=== PATIENT | male | born 1950 | race Caucasian/White ===

== ENCOUNTER 2020-01-19 01:49 | Inpatient (IN) ==
[2020-01-19] MEDS ORDERED: THORAZINE INJ 25 MG AMP ONE ×2 (02:03→07:24)
[2020-01-19] MEDS ORDERED: THORAZINE INJ 25 MG AMP IM ONE ×2 (02:05→07:13)
--- NOTE | 2020-01-19 02:05 | DR.GENAD ---
HPI Time Seen Time Seen by Provider: 01/19/20 02:13 PCP Primary Care Physician: RED Complaint/Symptoms Chief Complaint Doctors Comments: Patient on meds for COVID19 (Plaquenil, Steroids, vitamins). Chief complaint tonight is his Hiccups. Chief Complaint:: PT WAS TESTED FOR COVID 19 LAST SATURDAY FOR FEVER AND COUGH. HAS HAD HICCUPS EVER SINCE. COVID-19 Coronavirus risk:travel/contact w/high risk person: Yes Has patient experienced Coronavirus symptoms: Yes Coronavirus symptoms experienced: Coughing Nurses notes reviewed Nurses Notes Review: Yes Source History Provided: Patient Mode of Arrival Mode of Arrival: Ambulatory Timing Onset of Chief Complaint: 01/12/20 Came on: Gradually Duration Duration: Constant Duration: Days Severity Severity: Moderate Modifying Factors Worsens:: indigestion Associated Signs and Symptoms Associated Signs and Symptoms: cough PMH PMH Past Medical History: Yes Past Medical History: Dyslipidemia, GERD and Hypertension Past Surgical History: No Surgical History: No History Family History History of Family Medical Conditions: Yes Family Medical History: Hypertension Social History Does patient currently use any type of tobacco product: No Have you used tobacco products in the last 12 months: No Type of Tobacco Use: None Does any household member use tobacco: No Do you use any recreational Drugs:: No Lives With: Spouse Lives Where: Home Travel Risk Coronavirus risk:travel/contact w/high risk person: Yes Has patient experienced Coronavirus symptoms: Yes Coronavirus symptoms experienced: Coughing Infectious screening In the last 2 months have you had wt loss of >10#?: NO Have you had fever, night sweats or hemotysis?: No Have you traveled outside the country in the last 6 months?: No Isolation: Droplet ROS Review of Systems Constitutional: Fever Eyes: No Symptoms Reported ENTM: No Symptoms Reported Respiratoy: Non-Productive Cough Cardiovascular: No Symptoms Reported Gastrointestinal/Abdominal: Other (indigestion) Genitourinary: No Symptoms Reported Neurological: No Symptoms Reported Musculoskeletal: No Symptoms Reported Integumentary: No Symptoms Reported Hematologic/Lymphatic: No Symptoms Reported Endocrine: No Symptoms Reported Psychiatric: No Symptoms Reported All Other Systems: Reviewed and Negative PE Vital Signs Vitals: Temperature 98.1 F Pulse Rate [Left Brachial] 94 Pulse Rate 88 Respiratory Rate 20 Blood Pressure [Left Arm] 151/81 Blood Pressure 146/90 O2 Sat by Pulse Oximetry 97 General Limitations: No Limitations General Appearance: Alert and In No Apparent Distress Head Head Exam: Normal Inspection, Atraumatic and Normocephalic Eyes Eye exam: Normal Appearance and EOMI ENT ENT Exam: Normal Exam External Ear Exam: Normal External Inspection Nose Exam: Normal Nose Exam Mouth Exam: Normal Inspection Throat Exam: Normal Inspection Neck Neck Exam: Normal Inspection, Full ROM and Trachea Midline Chest Chest Inspection: Normal Inspection Respiratory Respiratory Exam: Normal Lung Sounds Bilat Respiratory Exam: Bilateral: Clear to Auscultation Cardiovascular Cardiovascular Exam: Regular Rate Abdominal Exam Abdominal Exam: Normal Inspection Extremities Extremities Exam: Normal Inspection and Full ROM Back Back Exam: Normal Inspection and Full ROM Neurologic Neurological Exam: Alert, Oriented X3, CN II-XII Intact and Normal Gait Psychiatric Psychiatric Exam: Flat Affect Skin Skin Exam: Normal Color COURSE Treatment Treatment: 0245: Hiccups resolved, ROR XRAY XRAY Interpreted by: Self X-ray Results: chest : no acute disease EKG Rhythm: VF Opioid Opioid Risk Tool Age (Maikol box if 16-45): No History of Preadolescent Sexual Abuse: No Total: 0 Total Score Risk Category: Low Risk Copyright: Rilye MCMAHON predicting aberrant behaviors Diagnosis Discharge Problem: Hiccups Instructions Instructions: Hiccups Forms: Excuse From Work Precautions for COVID19 Patient Portal Social Distancing
[2020-01-19] MEDS ORDERED: LEVSIN/MAALOX/LIDOC VISC PO ONE ×2 (02:06→07:18)
[2020-01-19] MEDS ORDERED: LEVSIN/MAALOX/LIDOC VISC ONE ×2 (02:08→07:24)
--- NOTE | 2020-01-19 02:57 | DR.GENAD ---
HPI Time Seen Time Seen by Provider: 01/19/20 02:13 PCP Primary Care Physician: RED Complaint/Symptoms Chief Complaint:: PT WAS TESTED FOR COVID 19 LAST SATURDAY FOR FEVER AND COUGH. HAS HAD HICCUPS EVER SINCE. COVID-19 Coronavirus risk:travel/contact w/high risk person: Yes Has patient experienced Coronavirus symptoms: Yes Coronavirus symptoms experienced: Coughing Nurses notes reviewed Nurses Notes Review: Yes Source History Provided: Patient Mode of Arrival Mode of Arrival: Ambulatory Timing Onset of Chief Complaint: 01/12/20 Came on: Gradually Duration Duration: Constant Duration: Days Severity Severity: Moderate Modifying Factors Worsens:: indigestion Associated Signs and Symptoms Associated Signs and Symptoms: cough PMH PMH Past Medical History: Yes Past Medical History: Dyslipidemia, GERD and Hypertension Past Surgical History: No Surgical History: No History Family History History of Family Medical Conditions: Yes Family Medical History: Hypertension Social History Does patient currently use any type of tobacco product: No Have you used tobacco products in the last 12 months: No Type of Tobacco Use: None Does any household member use tobacco: No Do you use any recreational Drugs:: No Lives With: Spouse Lives Where: Home Travel Risk Coronavirus risk:travel/contact w/high risk person: Yes Has patient experienced Coronavirus symptoms: Yes Coronavirus symptoms experienced: Coughing Infectious screening In the last 2 months have you had wt loss of >10#?: NO Have you had fever, night sweats or hemotysis?: No Have you traveled outside the country in the last 6 months?: No Isolation: Droplet PE Vital Signs Vitals: Temperature 98.1 F Pulse Rate [Left Brachial] 94 Pulse Rate 88 Respiratory Rate 20 Blood Pressure [Left Arm] 151/81 Blood Pressure 146/90 O2 Sat by Pulse Oximetry 97 Opioid Opioid Risk Tool Age (Maikol box if 16-45): No History of Preadolescent Sexual Abuse: No Total: 0 Total Score Risk Category: Low Risk Copyright: Riley MCMAHON predicting aberrant behaviors Diagnosis Discharge Problem: Hiccups Instructions Instructions: Hiccups Forms: Excuse From Work Precautions for COVID19 Patient Portal Social Distancing
--- NOTE | 2020-01-19 03:48 | RAD ---
HISTORYTESTED FOR COVID 19 AND WAS POSITIVE LAST RISHABH FOR FEVER AND COUGH. HAS HAD HICCUPS EVER SINCESTUDYCHEST, 1 VIEWCOMPARISONNoneFINDINGSThe trachea is midline. The cardiac silhouette is unremarkable . The lungs are clear without focal infiltrate or effusion. Pulmonary vasculature within normal limits. No pneumothorax. The bony thorax is unremarkable.IMPRESSIONNo acute cardiopulmonary disease.Electronically signed by: Ryan Sim (Jan 19, 2020 03:46:44)
[2020-01-19] MEDS ORDERED: XOPENEX 1.25 MG/3 ML NEBULE NEB ONE ×2 (07:12→07:37)
--- NOTE | 2020-01-19 07:12 | DR.GENAD ---
HPI Time Seen Time Seen by Provider: 01/19/20 02:13 PCP Primary Care Physician: RED Complaint/Symptoms Chief Complaint Doctors Comments: Patient returned to ER due to Hiccups returning and dyspnea. Chief Complaint:: PT WAS TESTED FOR COVID 19 LAST SATURDAY FOR FEVER AND COUGH. HAS HAD HICCUPS EVER SINCE. COVID-19 Coronavirus risk:travel/contact w/high risk person: Yes Has patient experienced Coronavirus symptoms: Yes Coronavirus symptoms experienced: Fever, Coughing and Shortness of Breath Nurses notes reviewed Nurses Notes Review: Yes Source History Provided: Patient Mode of Arrival Mode of Arrival: Ambulatory Timing Onset of Chief Complaint: 01/12/20 Came on: Gradually Duration Duration: Constant Duration: Days Severity Severity: Moderate Modifying Factors Worsens:: indigestion Associated Signs and Symptoms Associated Signs and Symptoms: cough PMH PMH Past Medical History: Yes Past Medical History: Dyslipidemia, GERD and Hypertension Past Surgical History: No Surgical History: No History Family History History of Family Medical Conditions: Yes Family Medical History: Hypertension Social History Does patient currently use any type of tobacco product: No Have you used tobacco products in the last 12 months: No Type of Tobacco Use: None Does any household member use tobacco: No Do you use any recreational Drugs:: No Lives With: Spouse Lives Where: Home Travel Risk Coronavirus risk:travel/contact w/high risk person: Yes Has patient experienced Coronavirus symptoms: Yes Coronavirus symptoms experienced: Fever, Coughing and Shortness of Breath Infectious screening In the last 2 months have you had wt loss of >10#?: NO Have you had fever, night sweats or hemotysis?: No Have you traveled outside the country in the last 6 months?: No Isolation: Droplet ROS Review of Systems Constitutional: No Symptoms Reported Eyes: No Symptoms Reported ENTM: No Symptoms Reported Respiratoy: Short of Breath Cardiovascular: No Symptoms Reported Gastrointestinal/Abdominal: No Symptoms Reported Genitourinary: No Symptoms Reported Neurological: Other (hiccups) Musculoskeletal: No Symptoms Reported Integumentary: No Symptoms Reported Hematologic/Lymphatic: No Symptoms Reported Psychiatric: No Symptoms Reported All Other Systems: Reviewed and Negative PE Vital Signs Vitals: Temperature 99.8 F Pulse Rate [Left Brachial] 109 Pulse Rate 100 Respiratory Rate 20 Blood Pressure [Left Arm] 143/82 Blood Pressure 168/89 O2 Sat by Pulse Oximetry 85 General Limitations: No Limitations General Appearance: Alert and In No Apparent Distress Head Head Exam: Normal Inspection, Atraumatic and Normocephalic Eyes Eye exam: Normal Appearance and EOMI ENT ENT Exam: Normal Exam and Normal Oropharynx External Ear Exam: Normal External Inspection Nose Exam: Normal Nose Exam Mouth Exam: Normal Inspection Throat Exam: Normal Inspection Neck Neck Exam: Normal Inspection, Full ROM and Trachea Midline Chest Chest Inspection: Normal Inspection Respiratory Respiratory Exam: Normal Lung Sounds Bilat Respiratory Exam: Bilateral: Clear to Auscultation Cardiovascular Cardiovascular Exam: Tachycardia Abdominal Exam Abdominal Exam: Normal Inspection and Soft Extremities Extremities Exam: Normal Inspection and Full ROM Back Back Exam: Normal Inspection and Full ROM Neurologic Neurological Exam: Alert, Oriented X3 and CN II-XII Intact Psychiatric Psychiatric Exam: Flat Affect Skin Skin Exam: Normal Color COURSE Treatment Treatment: 0755: Hiccups stopped again, feels good with no Dyspnea, will Rx albuterol for home nebulizer 0810: case turned over to DR. BLANC Opioid Opioid Risk Tool Age (Maikol box if 16-45): No History of Preadolescent Sexual Abuse: No Total: 0 Total Score Risk Category: Low Risk Copyright: Riley MCMAHON predicting aberrant behaviors Diagnosis Discharge Problem: Hiccups, Acute dyspnea Instructions Instructions: Hiccups Forms: Excuse From Work Precautions for COVID19 Patient Portal Social Distancing
[2020-01-19] MEDS ORDERED: DUONEB 0.5 MG/3 MG (3 mL) NEB ONE ×2 (07:58→08:05)
[2020-01-19 08:19] LABS: ABG ALLEN TEST POS; ABG BASE EXCESS 4.3 mmol/L (-2.0-2.0); ABG HCO3 26.5 mmol/L (22-26)
[2020-01-19 08:22] LABS: BASOPHILS % (AUTO) 0.2 % (0.2-1.0); EOSINOPHILS % (AUTO) 0.1 % (0.9-2.9); HEMATOCRIT 44.5 % (42.0-54.0); HEMOGLOBIN 15.4 g/dL (13.5-18.0); LYMPHOCYTES # (AUTO) 1.4 X10^3/uL (1.3-2.9); LYMPHOCYTES % (AUTO) 19.4 % (21.0-51.0); MEAN CORPUSCULAR HEMOGLOBIN 32.7 pg (27.0-34.0); MEAN CORPUSCULAR HGB CONC 34.6 g/dL (33.0-35.0); MEAN CORPUSCULAR VOLUME 94.6 fL (80.0-100.0); MEAN PLATELET VOLUME 7.2 fL (7.4-11.0); MONOCYTES # (AUTO) 0.5 x10^3/uL (0.3-0.8); MONOCYTES % (AUTO) 7.3 % (0.0-13.0); NEUTROPHILS # (AUTO) 5.2 x10^3/uL (2.2-4.8); PLATELET COUNT 160 X10^3/uL (150.0-450.0); RED CELL DISTRIBUTION WIDTH 13.6 % (11.6-16.5); WHITE BLOOD COUNT 7.1 X10^3/uL (3.6-10.0)
[2020-01-19 08:30] LABS: ALANINE AMINOTRANSFERASE 59 Units/L (12-78); ALBUMIN 3.4 g/dL (3.4-5.0); ALKALINE PHOSPHATASE 22 Units/L (46-116); ASPARTATE AMINO TRANSFERASE 37 Units/L (15-37); BLOOD UREA NITROGEN 26 mg/dL (7-18); CALCIUM 8.5 mg/dL (8.5-10.1); CARBON DIOXIDE 28.6 mmol/L (21-32); CHLORIDE 99 mmol/L (98-107); SODIUM 136 mmol/L (136-145); TOTAL PROTEIN 7.3 g/dL (6.4-8.2); eGFR NON BLACK RACES 40 (>60)
[2020-01-19 09:10] LABS: LACTATE DEHYDROGENASE 243 Units/L (85-227)
[2020-01-19 09:31] LABS: LACTIC ACID 1.6 mmol/L (0.4-2.0)
--- NOTE | 2020-01-19 10:24 | DR.GENAD ---
HPI Time Seen Time Seen by Provider: 01/19/20 02:13 PCP Primary Care Physician: RED HPI Comment HPI Comment: PATIENT IS 69YR OLD MALE IN ER WITH COUGH, HICCUPS. WEAKNESS AND INCREASING SOB FOR SEVERAL DAYS. PATIENT IS COVID POSITIVE. HAVING GENERALIZED WEAKNESS.HAVING HICCUPS ON AND OFF FOR PAST 2 WEEKS. Complaint/Symptoms Chief Complaint Doctors Comments: HICCUPS, GENERALIZED WEAKNESS, SOB AND COUGH SEVERAL DAYS. COVID TESTED POSITIVE [address] LOREN SORENSEN OFFICE IN [place]. Chief Complaint:: PT WAS TESTED FOR COVID 19 LAST SATURDAY FOR FEVER AND COUGH. H HAD HICCUPS EVER SINCE. COVID-19 Coronavirus risk:travel/contact w/high risk person: Yes Has patient experienced Coronavirus symptoms: Yes Coronavirus symptoms experienced: Fever, Coughing and Shortness of Breath Nurses notes reviewed Nurses Notes Review: Yes Source History Provided: Patient Mode of Arrival Mode of Arrival: Ambulatory Timing Onset of Chief Complaint: 01/12/20 Came on: Gradually Duration Duration: Constant Duration: Days Severity Severity: Moderate Modifying Factors Worsens:: indigestion Associated Signs and Symptoms Associated Signs and Symptoms: cough PMH PMH Past Medical History: Yes Past Medical History: Dyslipidemia, GERD and Hypertension Past Surgical History: No Surgical History: No History Family History History of Family Medical Conditions: Yes Family Medical History: Hypertension Social History Does patient currently use any type of tobacco product: No Have you used tobacco products in the last 12 months: No Type of Tobacco Use: None Does any household member use tobacco: No Do you use any recreational Drugs:: No Lives With: Spouse Lives Where: Home Travel Risk Coronavirus risk:travel/contact w/high risk person: Yes Has patient experienced Coronavirus symptoms: Yes Coronavirus symptoms experienced: Fever, Coughing and Shortness of Breath Infectious screening In the last 2 months have you had wt loss of >10#?: NO Have you had fever, night sweats or hemotysis?: No Have you traveled outside the country in the last 6 months?: No Isolation: Droplet ROS Review of Systems Constitutional: See HPI, Fever, Weakness, Fatigue and Other (HICCUPS.) Eyes: No Symptoms Reported and See HPI; negative Blurred Vision and Diplopia ENTM: See HPI and Nose Congestion; negative Ear Pain, Nose Discharge and Throat Pain Respiratoy: See HPI, Non-Productive Cough, Short of Breath and Other (HICCUPS) Cardiovascular: No Symptoms Reported and See HPI; negative Chest Pain Gastrointestinal/Abdominal: No Symptoms Reported and See HPI; negative Abdominal Pain, Diarrhea and Vomiting Genitourinary: No Symptoms Reported and See HPI; negative Dysuria, Frequency and Hematuria Neurological: See HPI, Weakness and Dizziness Musculoskeletal: See HPI and Muscle Pain Integumentary: No Symptoms Reported and See HPI Hematologic/Lymphatic: See HPI and Easy Bruising Endocrine: No Symptoms Reported and See HPI; negative Increased Thirst and Increased Urine Psychiatric: No Symptoms Reported and See HPI All Other Systems: Reviewed and Negative PE Vital Signs Vitals: Temperature 99.8 F Pulse Rate [Left Brachial] 109 Pulse Rate 75 Respiratory Rate 20 Blood Pressure [Left Arm] 143/82 Blood Pressure 105/65 O2 Sat by Pulse Oximetry 97 General Limitations: No Limitations General Appearance: Alert and In Distress Head Head Exam: Normal Inspection and Atraumatic Eyes Eye exam: Normal Appearance and PERRL; negative Scleral Icterus and Conjunctival Injection ENT ENT Exam: Normal Exam, Normal Oropharynx, Normal External Ear Exam and TM's Normal Bilaterally External Ear Exam: negative Mastoid Tenderness TM/Canal Exam: Bilateral: Normal Nose Exam: negative Sinus Tenderness Mouth Exam: Normal Inspection; negative Lip Swelling and Tongue Swelling Throat Exam: Normal Inspection; negative Tonsillar Erythema, Tonsillomegaly and Tonsillar Exudate Neck Neck Exam: Normal Inspection and Trachea Midline Chest Chest Inspection: Normal Inspection and Symmetric Chest Wall Rise; negative Tenderness Respiratory Respiratory Exam: Respiratory Distress; negative Accessory Muscle Use and Chest Wall Tenderness Respiratory Exam: Bilateral: Rhonchi and Lower: Rhonchi Cardiovascular Cardiovascular Exam: Regular Rate, Normal Rhythm and Normal Heart Sounds; negative Systolic Murmur and Diastolic Murmur Abdominal Exam Abdominal Exam: Normal Inspection, Normal Bowel Sounds and Soft; negative Tenderness Back Back Exam: Normal Inspection; negative (R) CVA Tenderness and (L) CVA Tenderness Neurologic Neurological Exam: Alert and Oriented X3; negative Motor Sensory Deficit Psychiatric Psychiatric Exam: Normal Affect and Normal Mood Skin Skin Exam: Dry MDM Differential Diagnosis Differential Diagnosis: PNEUMONIA, HICCUPS, CHF, UTI, COURSE Treatment Treatment: SEE ORDERS. PATIENT TURN OVER TO MY SERVICE BY DR. ARROYO. NS 1L IV BOLUS. PEPCID 20MG IVPB. ROCEPHIN 1GM IVPB IN ER. Reevaluation 1st: Improved Consultation Consultation Comments: DISCUSSED PATIENT WITH DR. RIOS. HE WILL ADMIT PATIENT. Education/Counseling Education/Counseling: Patient Educated On: Diagnosis ROR Labs Reviewed Laboratory Results Reviewed?: Yes Result Diagrams: 01/23/20 04:25 01/23/20 04:25 Laboratory: 01/19/20 08:56 Blood Blood Culture - Final 01/19/20 08:45 Blood Blood Culture - Final WBC 7.1 X10^3/uL (3.6-10.0) 01/19/20 08:14 RBC 4.70 X10^6/uL (4.7-6.0) 01/19/20 08:14 Hgb 15.4 g/dL (13.5-18.0) 01/19/20 08:14 Hct 44.5 % (42.0-54.0) 01/19/20 08:14 MCV 94.6 fL (80.0-100.0) 01/19/20 08:14 MCH 32.7 pg (27.0-34.0) 01/19/20 08:14 MCHC 34.6 g/dL (33.0-35.0) 01/19/20 08:14 RDW 13.6 % (11.6-16.5) 01/19/20 08:14 Plt Count 160 X10^3/uL (150.0-450.0) 01/19/20 08:14 MPV 7.2 fL (7.4-11.0) L 01/19/20 08:14 Neut % (Auto) 73.0 % (42.0-75.0) 01/19/20 08:14 Lymph % (Auto) 19.4 % (21.0-51.0) L 01/19/20 08:14 [place] % (Auto) 7.3 % (0.0-13.0) 01/19/20 08:14 Eos % (Auto) 0.1 % (0.9-2.9) L 01/19/20 08:14 Baso % (Auto) 0.2 % (0.2-1.0) 01/19/20 08:14 Neut # (Auto) 5.2 x10^3/uL (2.2-4.8) H 01/19/20 08:14 Lymph # (Auto) 1.4 X10^3/uL (1.3-2.9) 01/19/20 08:14 [place] # (Auto) 0.5 x10^3/uL (0.3-0.8) 01/19/20 08:14 Eos # (Auto) 0.0 x10^3/uL (0.0-0.2) 01/19/20 08:14 Baso # (Auto) 0.0 X10^3/uL (0.0-0.1) 01/19/20 08:14 Absolute Nucleated RBC 0.0 /100WBC 01/19/20 08:14 D-Dimer < 100 ng/mL (0-400) 01/19/20 08:45 Sample Site Lr 01/19/20 08:15 ABG pH 7.540 (7.35-7.45) H 01/19/20 08:15 ABG pCO2 31.0 mmHg (35.0-45.0) L 01/19/20 08:15 ABG pO2 57.0 mmHg (80.0-100.0) L 01/19/20 08:15 ABG HCO3 26.5 mmol/L (22-26) H 01/19/20 08:15 ABG O2 Saturation 93.0 % (90-100) 01/19/20 08:15 ABG Base Excess 4.3 mmol/L (-2.0-2.0) H 01/19/20 08:15 Fab Test Pos 01/19/20 08:15 A-a Gradient 54.0 mmHg 01/19/20 08:15 FiO2 21.0 01/19/20 08:15 Blood Gas Comments Sandee well cb 01/19/20 08:15 Sodium 136 mmol/L (136-145) 01/19/20 08:14 Corrected Sodium TNP 01/19/20 08:14 Potassium 4.0 mmol/L (3.5-5.1) 01/19/20 08:14 Chloride 99 mmol/L (98-107) 01/19/20 08:14 Carbon Dioxide 28.6 mmol/L (21-32) 01/19/20 08:14 BUN 26 mg/dL (7-18) H 01/19/20 08:14 Creatinine 1.80 mg/dL (0.70-1.30) H 01/19/20 08:14 Est GFR (MDRD) Af Amer 48 (>60) L 01/19/20 08:14 Est GFR (MDRD) Non-Af 40 (>60) L 01/19/20 08:14 Glucose 101 mg/dL (65-99) H 01/19/20 08:14 Lactic Acid 1.6 mmol/L (0.4-2.0) 01/19/20 08:45 Calcium 8.5 mg/dL (8.5-10.1) 01/19/20 08:14 Corrected Calcium TNP 01/19/20 08:14 Ferritin 195 ng/mL (26-388) 01/19/20 08:45 Total Bilirubin 0.50 mg/dL (0.2-1.0) 01/19/20 08:14 AST 37 Units/L (15-37) 01/19/20 08:14 ALT 59 Units/L (12-78) 01/19/20 08:14 Alkaline Phosphatase 22 Units/L (46-116) L 01/19/20 08:14 Lactate Dehydrogenase 243 Units/L (85-227) H 01/19/20 08:45 C-Reactive Protein 19.40 mg/L (0-3.0) H 01/19/20 08:14 Total Protein 7.3 g/dL (6.4-8.2) 01/19/20 08:14 Albumin 3.4 g/dL (3.4-5.0) 01/19/20 08:14 Globulin 3.9 g/dL (2.5-4.5) 01/19/20 08:14 Albumin/Globulin Ratio 0.9 Ratio (1.1-2.1) L 01/19/20 08:14 Opioid Opioid Risk Tool Age (Maikol box if 16-45): No History of Preadolescent Sexual Abuse: No Total: 0 Total Score Risk Category: Low Risk Copyright: [facility] predicting aberrant behaviors Diagnosis Discharge Problem: Hiccups, Acute dyspnea, Generalized weakness, Acute dehydration, COVID-19 virus infection Instructions Instructions: Shortness of Breath, Adult, [id number] Viral Respiratory Infection, Gjze-Nd-Cswj Dehydration, Adult, [id number] Rehydration, Adult Hiccups Hypertension, Kgnn-[id number] Community-Acquired Pneumonia, Adult, Lpks-as-[id number] Forms: Precautions for COVID19 Patient Portal Social Distancing
[2020-01-19] MEDS ORDERED: NS 1000 ML 1,000 ML IV ONE (10:35)
[2020-01-19] MEDS ORDERED: PEPCID 20 MG IV PREMIX* 20 MG/50 ML BAG IV ONE ×2 (10:35→10:38)
[2020-01-19] MEDS ORDERED: NS 1000 ML 1,000 ML ONE ×2 (10:38→12:15)
[2020-01-19] MEDS: NS 1000 ML 1,000 ML IV SCH ×2 (12:54→18:45)
[2020-01-19 14:36] LABS: CKMB % 0.5 % (<4); CREATINE KINASE 371 Units/L (39-308); TROPONIN I < 0.02 ng/mL (0-1.5)
[2020-01-19] MEDS ORDERED: ROCEPHIN VIAL 1 GRAM 1 G, ROCEPHIN VIAL 500 MG 500 MG in NS 50 ML IV 50 ML IV SCH (14:55)
[2020-01-19 15:51] LABS: BILIRUBIN,URINE NEGATIVE (NEGATIVE); BLOOD/HEMOGLOBIN,URINE NEGATIVE (NEGATIVE); GLUCOSE, URINE NEGATIVE (NEGATIVE); KETONES,URINE 1+ (NEGATIVE); LEUKOCYTE ESTERASE ,URINE NEGATIVE (NEGATIVE); NITRITES,URINE NEGATIVE (NEGATIVE); PROTEIN,URINE 2+ (NEGATIVE); UROBILINOGEN,URINE NORMAL (NORMAL)
[2020-01-19 15:55] LABS: APPEARANCE,URINE SLIGHTLY HAZY (CLEAR); BACTERIA,URINE TRACE /HPF (NEGATIVE); COLOR,URINE YELLOW (YELLOW); HYALINE CASTS, URINE RARE /LPF (NEGATIVE); MUCUS,URINE MODERATE /HPF (NEGATIVE); RBC,URINE NONE SEEN /HPF (0-3); SQUAMOUS EPITHELIAL CELL,UR FEW /HPF (NEGATIVE)
[2020-01-19 15:56] VITALS: BMI 32.5
[2020-01-19] MEDS ORDERED: ROCEPHIN 1 GRAM IV PREMIX 1 G/50 ML IV.SOLN. IV SCH (16:00)
[2020-01-19] MEDS: DUONEB 0.5 MG/3 MG (3 mL) NEB SCH ×2 (17:00→21:37)
[2020-01-19] MEDS ORDERED: ROBITUSSIN DM PO PRN (17:19)
[2020-01-19] MEDS ORDERED: AMLODIPINE BENAZEPRIL PO SCH (17:45)
[2020-01-19] MEDS: THORAZINE TAB 25 MG PO SCH (18:45)
[2020-01-19] MEDS: ZITHROMAX INJ 500 MG VIAL 500 MG in NS 250 ML IV 250 ML IV SCH (19:15)
[2020-01-19 20:52] LABS: CKMB % 0.4 % (<4); CREATINE KINASE 414 Units/L (39-308); CREATINE KINASE MB 1.7 ng/mL (0-4.0); TROPONIN I < 0.02 ng/mL (0-1.5)
[2020-01-19] MEDS: PULMICORT NEB TX 0.5 MG NEB SCH (21:37)
[2020-01-20] MEDS: NS 1000 ML 1,000 ML IV SCH ×4 (00:30→16:20)
[2020-01-20] MEDS: THORAZINE TAB 25 MG PO SCH ×3 (03:00→17:25)
[2020-01-20 05:17] LABS: BASOPHILS % (AUTO) 0.1 % (0.2-1.0); EOSINOPHILS % (AUTO) 0.1 % (0.9-2.9); HEMATOCRIT 36.7 % (42.0-54.0); LYMPHOCYTES # (AUTO) 1.2 X10^3/uL (1.3-2.9); MEAN CORPUSCULAR HEMOGLOBIN 32.9 pg (27.0-34.0); MEAN CORPUSCULAR HGB CONC 34.4 g/dL (33.0-35.0); MEAN CORPUSCULAR VOLUME 95.8 fL (80.0-100.0); MEAN PLATELET VOLUME 7.9 fL (7.4-11.0); MONOCYTES # (AUTO) 0.4 x10^3/uL (0.3-0.8); MONOCYTES % (AUTO) 7.3 % (0.0-13.0); NEUTROPHILS # (AUTO) 3.6 x10^3/uL (2.2-4.8); NEUTROPHILS % (AUTO) 68.5 % (42.0-75.0); PLATELET COUNT 160 X10^3/uL (150.0-450.0); RED BLOOD COUNT 3.83 X10^6/uL (4.7-6.0); RED CELL DISTRIBUTION WIDTH 13.6 % (11.6-16.5); WHITE BLOOD COUNT 5.2 X10^3/uL (3.6-10.0)
--- NOTE | 2020-01-20 05:19 | RAD ---
HISTORYHYPOXIASTUDYCHEST, 1 [id number]/04/2020FINDINGSThe trachea is midline. The cardiac silhouette is a. There is subtle patchy infiltrate now present in the midlung oreilly bilaterally. No pleural effusion or pneumothorax. The bony thorax is unremarkable.IMPRESSIONSuspected mild patchy infiltrates within the mid lung oreilly bilaterally.Electronically signed by: Ryan Sim (Jan 20, 2020 05:17:44)
[2020-01-20 05:21] LABS: ALANINE AMINOTRANSFERASE 60 Units/L (12-78); ALBUMIN 2.6 g/dL (3.4-5.0); ALKALINE PHOSPHATASE 15 Units/L (46-116); ASPARTATE AMINO TRANSFERASE 48 Units/L (15-37); BLOOD UREA NITROGEN 28 mg/dL (7-18); CALCIUM 7.4 mg/dL (8.5-10.1); CARBON DIOXIDE 26.8 mmol/L (21-32); CHLORIDE 103 mmol/L (98-107); COR CA(FOR HYPOALB) 8.5 mg/dL (8.5-10.1); CREATININE 1.87 mg/dL (0.70-1.30); MAGNESIUM 1.8 mg/dL (1.7-2.9); SODIUM 137 mmol/L (136-145); TOTAL PROTEIN 5.8 g/dL (6.4-8.2); eGFR NON BLACK RACES 38 (>60)
[2020-01-20 06:04] LABS: HEMOGLOBIN 12.6 g/dL (13.5-18.0)
[2020-01-20] MEDS ORDERED: REMDESIVIR (INVESTIGATIONAL DRUG GS-5734) 200 MG in NS 250 ML IV 250 ML IV SCH (09:00)
[2020-01-20] MEDS: DUONEB 0.5 MG/3 MG (3 mL) NEB SCH ×4 (09:10→20:50)
[2020-01-20] MEDS: PULMICORT NEB TX 0.5 MG NEB SCH ×2 (09:10→20:50)
[2020-01-20] MEDS: LIPITOR TAB 20 MG PO SCH (09:20)
[2020-01-20] MEDS: LOTENSIN TAB 10 MG PO SCH (09:21)
[2020-01-20] MEDS: NexIUM PO SCH (09:21)
[2020-01-20] MEDS: VITAMIN C PO SCH (09:22)
[2020-01-20] MEDS: VITAMIN D3 125 mcg (5,000 UNITS) PO SCH (09:22)
[2020-01-20] MEDS: NORVASC TAB 5 MG PO SCH (09:22)
[2020-01-20] MEDS: ZITHROMAX INJ 500 MG VIAL 500 MG in NS 250 ML IV 250 ML IV SCH (09:23)
[2020-01-20] MEDS: ZINC SULFATE PO SCH (09:23)
[2020-01-20] MEDS: LOVENOX INJ 40 MG SYR SC SCH (10:38)
[2020-01-20] MEDS: PLAQUENIL PO SCH ×2 (12:00→22:32)
[2020-01-20] MEDS: ZOSYN VIAL 3.375 GRAMS 3.375 G in NS 100 ML IV + SPIKE MINIBAG* 100 ML IV SCH ×3 (14:30→22:33)
--- NOTE | 2020-01-20 18:40 | DR.H&P ---
H&P - History & Physical for Day of: H&P Date: 01/19/20 - Chief Complaint Chief Complaint: "CANT GET RID OF HICCUPS" SOB, COVID 19+ - History of Present Illness History of Present Illness: PT IS 69 WM ER ADMISSION AFTER PRESENTING WITH CO DX WITH COVID19+ ON 01/10 AND HAS BEEN ON THERAPY WITH ZITHROMAX AND PLAQUENIL. PT CO ONSET OF HICCUPS WITHOUT ANY RELIEF. PT CO SOB WORSE ON EXERTION AND FATIGUE. PT DENIES ANY CAD, COPD. PT ADMITTED FOR TREATMENT OF ACUTE ILNESS - Past Medical History Past Medical History: Hypertension, Dyslipidemia, GERD - Past Surgical History Surgical History: No History - Family History Family Medical History: Hypertension - Social History Does patient currently use any type of tobacco product: No Have you used tobacco products in the last 12 months: No Type of Tobacco Use: None How many years tobacco product used: 0 Does any household member use tobacco: No Alcohol Use: None Drug Use: None - Medications Home Medications: No Known Drug Allergies Allergy (Verified 01/19/20 02:08) CONTINUE taking the following medications amlodipine-benazepril 1 cap PO DAILY 01/19/20 [History] atorvastatin 20 mg PO DAILY 01/19/20 [History] esomeprazole magnesium [Nexium] 40 mg PO DAILY 01/19/20 [History] New Prescriptions diazepam [Valium] 5 mg PO QHS PRN #7 tab MDD 15 01/19/20 [Rx] - Review of Systems Constitutional: Fever, Chills, Weakness, Malaise Eyes: No Symptoms Reported ENT: No Symptoms Reported Respiratory: Cough, SOB with Excertion Cardiovascular: No Symptoms Reported. denies: Edema Gastrointestinal: No Symptoms Reported Genitourinary: No Symptoms Reported Musculoskeletal: No Symptoms Reported Skin: No Symptoms Reported Neurological: No Symptoms Reported - Physical Exam Vital Signs: Temperature 98.2 F Pulse Rate [Left Brachial] 109 Pulse Rate 83 Respiratory Rate 25 Blood Pressure [Left Arm] 143/82 Blood Pressure 104/65 O2 Sat by Pulse Oximetry 95 Oriented: Normal Eyes: Normal Ear: Normal Nose: Normal Throat: Normal Respiratory: RML Diminished, RLL Diminished, LLL Diminished Cardiovascular: Normal. negative: Edema : Normal Auscultation: Bowel Sounds: Normal Palpation: Normal Tenderness: Normal Skin: Normal Musculoskeletal: Normal Psychiatric: Anxiety Affect: Anxious Speech Pattern: Clear, Appropriate - Assessment/Plan (1) COVID-19 virus infection Status: Acute Plan: ADMIT, SUPPLEMENTAL O2. BLOOD AND SPUTUM CUTLURES. CRP. CARDIAC MONITORTING. BP CONTROL, CONFIRM HOME MEDICATION, ISOLATION PRECAUTIONS. IV ATBX THERAPY, THORAZINE FOR HICCUPS, PT, REPEAT ABG. IV HYDRATION (2) Acute dehydration Status: Acute (3) Acute dyspnea Status: Acute (4) Hiccups Status: Acute (5) Hypertension Status: Acute - Allergies Allergies/Adverse Reactions: Allergies Allergy/AdvReac Type Severity Reaction Status Date / Time No Known Drug Allergies Allergy Verified 01/19/20 02:08
[2020-01-20] MEDS: SOLU-Medrol 125 MG VIAL IVP SCH (22:33)
[2020-01-21] MEDS: THORAZINE TAB 25 MG PO SCH ×3 (02:29→18:47)
[2020-01-21] MEDS: NS 1000 ML 1,000 ML IV SCH ×2 (03:41→18:41)
[2020-01-21] MEDS ORDERED: NS 100 ML IV 100 ML IV ONE (05:24)
[2020-01-21] MEDS ORDERED: ZOSYN VIAL 3.375 GRAMS IV ONE (05:24)
[2020-01-21 05:35] LABS: BASOPHILS % (AUTO) 0.1 % (0.2-1.0); HEMATOCRIT 37.7 % (42.0-54.0); HEMOGLOBIN 12.8 g/dL (13.5-18.0); LYMPHOCYTES # (AUTO) 0.4 X10^3/uL (1.3-2.9); LYMPHOCYTES % (AUTO) 7.3 % (21.0-51.0); MEAN CORPUSCULAR HEMOGLOBIN 32.7 pg (27.0-34.0); MEAN CORPUSCULAR VOLUME 96.2 fL (80.0-100.0); MEAN PLATELET VOLUME 7.8 fL (7.4-11.0); MONOCYTES # (AUTO) 0.2 x10^3/uL (0.3-0.8); NEUTROPHILS # (AUTO) 5.1 x10^3/uL (2.2-4.8); NEUTROPHILS % (AUTO) 89.6 % (42.0-75.0); PLATELET COUNT 181 X10^3/uL (150.0-450.0); RED BLOOD COUNT 3.92 X10^6/uL (4.7-6.0); RED CELL DISTRIBUTION WIDTH 13.5 % (11.6-16.5); WHITE BLOOD COUNT 5.7 X10^3/uL (3.6-10.0)
[2020-01-21 05:42] LABS: ALBUMIN 2.6 g/dL (3.4-5.0); CALCIUM 7.7 mg/dL (8.5-10.1); CARBON DIOXIDE 21.6 mmol/L (21-32); COR CA(FOR HYPOALB) 8.8 mg/dL (8.5-10.1); CREATININE 1.77 mg/dL (0.70-1.30); TOTAL PROTEIN 6.2 g/dL (6.4-8.2)
[2020-01-21] MEDS: SOLU-Medrol 125 MG VIAL IVP SCH ×3 (06:11→21:35)
[2020-01-21] MEDS: ZOSYN VIAL 3.375 GRAMS 3.375 G in NS 100 ML IV + SPIKE MINIBAG* 100 ML IV SCH ×3 (06:11→21:36)
[2020-01-21] MEDS: PULMICORT NEB TX 0.5 MG NEB SCH ×2 (08:25→20:25)
[2020-01-21] MEDS: DUONEB 0.5 MG/3 MG (3 mL) NEB SCH ×4 (08:25→20:25)
[2020-01-21] MEDS: NexIUM PO SCH (08:55)
[2020-01-21] MEDS: ZINC SULFATE PO SCH (08:56)
[2020-01-21] MEDS: PLAQUENIL PO SCH ×2 (08:56→21:35)
[2020-01-21] MEDS: VITAMIN C PO SCH (08:56)
[2020-01-21] MEDS: NORVASC TAB 5 MG PO SCH (08:57)
[2020-01-21] MEDS: VITAMIN D3 125 mcg (5,000 UNITS) PO SCH (08:57)
[2020-01-21] MEDS: LOVENOX INJ 40 MG SYR SC SCH (08:58)
[2020-01-21] MEDS: LIPITOR TAB 20 MG PO SCH (08:58)
[2020-01-21] MEDS: LOTENSIN TAB 10 MG PO SCH (08:58)
[2020-01-21] MEDS: REMDESIVIR (INVESTIGATIONAL DRUG GS-5734) 100 MG in NS 250 ML IV 250 ML IV SCH (09:22)
[2020-01-21] MEDS: ZITHROMAX INJ 500 MG VIAL 500 MG in NS 250 ML IV 250 ML IV SCH (09:22)
[2020-01-22] MEDS: THORAZINE TAB 25 MG PO SCH ×3 (02:07→18:34)
[2020-01-22] MEDS: NS 1000 ML 1,000 ML IV SCH ×3 (02:08→18:33)
[2020-01-22 05:37] LABS: BASOPHILS % (AUTO) 0.1 % (0.2-1.0); HEMATOCRIT 39.3 % (42.0-54.0); HEMOGLOBIN 13.1 g/dL (13.5-18.0); LYMPHOCYTES # (AUTO) 0.6 X10^3/uL (1.3-2.9); MEAN CORPUSCULAR HEMOGLOBIN 32.1 pg (27.0-34.0); MEAN CORPUSCULAR HGB CONC 33.3 g/dL (33.0-35.0); MEAN CORPUSCULAR VOLUME 96.6 fL (80.0-100.0); MONOCYTES # (AUTO) 0.3 x10^3/uL (0.3-0.8); MONOCYTES % (AUTO) 2.9 % (0.0-13.0); NEUTROPHILS # (AUTO) 8.5 x10^3/uL (2.2-4.8); PLATELET COUNT 201 X10^3/uL (150.0-450.0); RED BLOOD COUNT 4.07 X10^6/uL (4.7-6.0); RED CELL DISTRIBUTION WIDTH 13.3 % (11.6-16.5); WHITE BLOOD COUNT 9.3 X10^3/uL (3.6-10.0)
[2020-01-22 05:38] LABS: ALBUMIN 2.4 g/dL (3.4-5.0); CALCIUM 7.5 mg/dL (8.5-10.1); CARBON DIOXIDE 23.3 mmol/L (21-32); COR CA(FOR HYPOALB) 8.8 mg/dL (8.5-10.1); CREATININE 1.59 mg/dL (0.70-1.30); TOTAL PROTEIN 5.8 g/dL (6.4-8.2)
[2020-01-22] MEDS: ZOSYN VIAL 3.375 GRAMS 3.375 G in NS 100 ML IV + SPIKE MINIBAG* 100 ML IV SCH ×3 (05:56→22:55)
[2020-01-22] MEDS: SOLU-Medrol 125 MG VIAL IVP SCH ×3 (05:56→21:55)
[2020-01-22 06:26] LABS: PLATELET MORPHOLOGY COMMENT NORMAL (NORMAL)
[2020-01-22] MEDS: LIPITOR TAB 20 MG PO SCH (09:03)
[2020-01-22] MEDS: LOTENSIN TAB 10 MG PO SCH (09:04)
[2020-01-22] MEDS: NexIUM PO SCH (09:04)
[2020-01-22] MEDS: PLAQUENIL PO SCH ×2 (09:05→21:55)
[2020-01-22] MEDS: NORVASC TAB 5 MG PO SCH (09:05)
[2020-01-22] MEDS: VITAMIN D3 125 mcg (5,000 UNITS) PO SCH (09:06)
[2020-01-22] MEDS: ZINC SULFATE PO SCH (09:06)
[2020-01-22] MEDS: DUONEB 0.5 MG/3 MG (3 mL) NEB SCH ×4 (09:10→20:55)
[2020-01-22] MEDS: PULMICORT NEB TX 0.5 MG NEB SCH ×2 (09:10→20:55)
[2020-01-22] MEDS: VITAMIN C PO SCH (09:13)
[2020-01-22] MEDS: LOVENOX INJ 40 MG SYR SC SCH (09:13)
[2020-01-22] MEDS: REMDESIVIR (INVESTIGATIONAL DRUG GS-5734) 100 MG in NS 250 ML IV 250 ML IV SCH (09:14)
[2020-01-22] MEDS: ZITHROMAX INJ 500 MG VIAL 500 MG in NS 250 ML IV 250 ML IV SCH (10:00)
[2020-01-22 10:12] LABS: ABG ALLEN TEST POS; ABG HCO3 20.9 mmol/L (22-26)
--- NOTE | 2020-01-22 10:34 | RAD ---
HISTORYSOB, COVID +STUDYPortable AP chestCOMPARISONAugust 2019FINDINGSThe heart size is prominent and the mediastinum is unremarkable. There is no effusion. There is vague increased density in the left lower lobe peripherally. This is similar to prior exam. The right lung appears to be clear. No bony abnormality is demonstrated.IMPRESSIONGround-glass like opacity peripherally in the left lower lobe likely representing a pneumonitisElectronically signed by: ADELAIDA VAZQUEZ (Jan 22, 2020 10:33:16)
[2020-01-23] MEDS: THORAZINE TAB 25 MG PO SCH ×2 (02:45→11:15)
[2020-01-23 05:33] LABS: BASOPHILS % (AUTO) 0.2 % (0.2-1.0); HEMATOCRIT 38.3 % (42.0-54.0); HEMOGLOBIN 12.8 g/dL (13.5-18.0); LYMPHOCYTES # (AUTO) 0.5 X10^3/uL (1.3-2.9); LYMPHOCYTES % (AUTO) 4.1 % (21.0-51.0); MEAN CORPUSCULAR HEMOGLOBIN 31.9 pg (27.0-34.0); MEAN CORPUSCULAR HGB CONC 33.4 g/dL (33.0-35.0); MEAN CORPUSCULAR VOLUME 95.4 fL (80.0-100.0); MEAN PLATELET VOLUME 7.5 fL (7.4-11.0); MONOCYTES # (AUTO) 0.4 x10^3/uL (0.3-0.8); MONOCYTES % (AUTO) 3.2 % (0.0-13.0); NEUTROPHILS # (AUTO) 11.6 x10^3/uL (2.2-4.8); NEUTROPHILS % (AUTO) 92.5 % (42.0-75.0); PLATELET COUNT 230 X10^3/uL (150.0-450.0); RED BLOOD COUNT 4.02 X10^6/uL (4.7-6.0); RED CELL DISTRIBUTION WIDTH 13.8 % (11.6-16.5); WHITE BLOOD COUNT 12.5 X10^3/uL (3.6-10.0)
[2020-01-23 05:42] LABS: ALANINE AMINOTRANSFERASE 98 Units/L (12-78); ALBUMIN 2.3 g/dL (3.4-5.0); ALKALINE PHOSPHATASE 22 Units/L (46-116); ASPARTATE AMINO TRANSFERASE 45 Units/L (15-37); BLOOD UREA NITROGEN 20 mg/dL (7-18); CALCIUM 7.7 mg/dL (8.5-10.1); CARBON DIOXIDE 23.9 mmol/L (21-32); CHLORIDE 110 mmol/L (98-107); COR CA(FOR HYPOALB) 9.1 mg/dL (8.5-10.1); COR NA(FOR HYPERGLY) 143 mmol/L (136-145); CREATININE 1.45 mg/dL (0.70-1.30); SODIUM 141 mmol/L (136-145); TOTAL PROTEIN 5.6 g/dL (6.4-8.2); eGFR NON BLACK RACES 51 (>60)
[2020-01-23 06:25] LABS: PLATELET MORPHOLOGY COMMENT NORMAL (NORMAL)
[2020-01-23] MEDS: ZOSYN VIAL 3.375 GRAMS 3.375 G in NS 100 ML IV + SPIKE MINIBAG* 100 ML IV SCH ×2 (06:25→14:43)
[2020-01-23] MEDS: SOLU-Medrol 125 MG VIAL IVP SCH (06:35)
[2020-01-23] MEDS: NS 1000 ML 1,000 ML IV SCH (06:55)
[2020-01-23] MEDS: PULMICORT NEB TX 0.5 MG NEB SCH (08:45)
[2020-01-23] MEDS: DUONEB 0.5 MG/3 MG (3 mL) NEB SCH ×2 (08:45→12:10)
[2020-01-23] MEDS: LOVENOX INJ 40 MG SYR SC SCH (11:10)
[2020-01-23] MEDS: REMDESIVIR (INVESTIGATIONAL DRUG GS-5734) 100 MG in NS 250 ML IV 250 ML IV SCH (11:11)
[2020-01-23] MEDS: LIPITOR TAB 20 MG PO SCH (11:11)
[2020-01-23] MEDS: LOTENSIN TAB 10 MG PO SCH (11:11)
[2020-01-23] MEDS: PLAQUENIL PO SCH (11:12)
[2020-01-23] MEDS: NexIUM PO SCH (11:12)
[2020-01-23] MEDS: NORVASC TAB 5 MG PO SCH (11:12)
[2020-01-23] MEDS: ZITHROMAX INJ 500 MG VIAL 500 MG in NS 250 ML IV 250 ML IV SCH (11:13)
[2020-01-23] MEDS: VITAMIN D3 125 mcg (5,000 UNITS) PO SCH (11:13)
[2020-01-23] MEDS: VITAMIN C PO SCH (11:13)
[2020-01-23] MEDS: ZINC SULFATE PO SCH (11:13)
[2020-01-23 17:48] VITALS: BP 124/69
[2020-01-24] MEDS ORDERED: DECADRON TAB PO SCH (09:00)
== END 2020-01-23 17:57 | disposition home or self-care (01) | DRG 177 ==
LOC: ER 01:51 → MED/SURG 11:37 → ICU 14:47
PROVIDERS: ADMIT Internal Medicine; ATTEND Internal Medicine
CPT/HCPCS: 36415; 36600; 71010; 71045; 80053; 81001; 82550; 82553; 82728; 82803; 83605; 83615; 83735; 84484; 85025; 85378; 85610; 85730; 86140; 87040; 93005; 94640; 96365; 96367; 96372; 96374; 99282; 99284; A4222; J0456; J0696; J1650; J2543; J2930; J3230; J7030; J7050; J7620; J7626; S0028